=== PATIENT | male | born 1975 | race Caucasian/White ===

== ENCOUNTER 2021-05-05 11:55 | Emergency (ER) | payer MEDICAID, SELFPAY ==
[2021-05-05 12:04] VITALS: BP 156/104; PULSE 98; RESP 18; TEMP 36.5; O2SAT 94; BMI 33.5
--- NOTE | 2021-05-05 12:33 | XRR_ITS ---
PROCEDURE INFORMATION: Exam: XR Right Knee Exam date and time: 05/05/2021 12:33 PM Age: 45 years old Clinical indication: Pain; Knee; Right; Prior surgery; Surgery date: 6+ months; Additional info: Right knee pain TECHNIQUE: Imaging protocol: XR Right knee. Views: 3 views. COMPARISON: No relevant prior studies available. FINDINGS: Bones/joints: Status post ORIF of proximal tibial fracture with degenerative change. Mild sclerosis involving the lateral femoral condyle. Soft tissues: Unremarkable soft tissues. XR/XR knee RT 3V* [id number] IMPRESSION: Status post ORIF of proximal tibial fracture with degenerative change.
--- NOTE | 2021-05-05 12:33 | USCV_ITS ---
Ravinder Gibbs Age: 45 Gender: M : 1975 Exam Date: 05/05/2021 12:47 Ordering Phys: Artur Layton Technologist: Exam Location: [facility] [place]_ Indication: RT LEG PAIN AND SWELLING PROCEDURES: Venous duplex imaging was performed in only the right lower extremity. The following venous structures were evaluated: common femoral vein, profunda vein, proximal portion of the greater saphenous vein, superficial femoral vein, and the popliteal vein. In addition, the posterior tibial and peroneal trunk were evaluated. On the right side, the common femoral, superficial femoral, profunda femoral, popliteal, posterior tibial, greater saphenous veins and the peroneal trunk were identified and interrogated in the standard fashion. These veins were found to be easily compressible with spontaneous blood flow. No evidence of insufficiency or thrombus noted. FINDINGS: Normal 2-D Doppler and augmentation and compressibility throughout the lower extremity venous structures. Additional imaging through the proximal calf veins also reveals no thrombus. Limited evaluation of the greater saphenous vein is patent with no thrombus.. CONCLUSIONS No evidence of DVT in the above-mentioned identifiable veins. Dr Cindy Monge MD [facility] (Electronically Signed) Final Date: 05 May 2021 18:11 S
--- NOTE | 2021-05-05 12:35 | ED_ITS ---
HPI - Extremity Problem General: Chief complaint: Extremity Injury, Lower Stated complaint: Right knee pain Time Seen by Provider: 05/05/21 12:15 History of Present Illness: Patient is a 45-year-old male comes to the ED with right leg pain. Patient has past surgical history of a tibial plateau fracture where hardware was put in place. Over the past couple months patient has had increased right leg pain that occurs in his right knee sometimes in his calf. Majority of his pain is been in his right knee. He has been traveling a lot over the past couple weeks and doing a lot of sitting in the car and a lot of walking as well. Denies any fall or trauma to cause right leg pain. He rates his pain currently a 6 out of 10 but says he gets worse when he is up bearing weight on right leg. Denies any chest pain, shortness of breath or hemoptysis. Associated symptoms: Deny chest pain, fever(s) or rash Review of Systems Const: Denies: fever(s), chills or fatigue Eyes: Denies: change in vision or eye discomfort ENMT: Denies: throat pain, odynophagia, nasal discharge or nasal congestion Card: Denies: chest pain, palpitations, edema, swelling of feet/ankles, dyspnea on exertion or orthopnea Resp: Denies: dyspnea, productive cough or non-productive cough GI: Denies: abdominal pain, nausea, vomiting, diarrhea, constipation or hematochezia : Denies: flank pain, difficulty urinating, dysuria or hematuria Musc: Reports: extremity pain (Right knee and right calf); Denies: neck pain, back pain or extremity swelling Skin/Breast: Denies: rash or new lesions Neuro: Denies: headache(s), numbness in extremities or weakness in extremities [facility] ED PFSH: Medical History Fracture of tibial plateau No pertinent family history Physical Exam Const: COMMON NORMALS: no acute distress, patient oriented x3, healthy appearing and alert GENERAL APPEARANCE: cooperative and comfortable HENMT: COMMON NORMALS: normocephalic HEAD & SCALP: normocephalic MOUTH: Normal oral and palatal mucosa present THROAT: posterior oropharynx normal and uvula midline Neck/C-Spine: COMMON NORMALS: supple GENERAL: Yes normal visual inspection Resp: COMMON NORMALS: normal respiratory effort, No retractions, No use of accessory muscles and clear to auscultation bilaterally AUSCULTATION: clear to auscultation bilaterally Cardio: COMMON NORMALS: regular rate, regular rhythm, S1 normal heart sound present, S2 normal heart sound present, No gallops present (Cardio), No clicks present (Cardio), No murmurs present (Cardio) and Peripheral pulses 2+ throughout RATE: regular rate RHYTHM: regular rhythm HEART SOUNDS: S1 normal heart sound present and S2 normal heart sound present PERIPHERAL PULSES: Peripheral pulses 2+ throughout GI: COMMON NORMALS: Normal to inspection, nondistended, normoactive bowel sounds present, Soft to palpation, non-tender and no masses PALPATION: Yes Soft to palpation : COMMON NORMALS: Yes no CVA tenderness BLADDER/KIDNEY EXAM: Yes no CVA tenderness Back/Pelvis: COMMON NORMALS: no CVA tenderness Extremity: GENERAL: Yes normal exam except as noted RIGHT LOWER EXTREMITY: Yes knee joint Right knee: Yes inspection (Mild swelling.), Yes palpation (Tenderness over patella), Yes ROM (Full range of motion with pain) and Yes neurovascular exam (Intact) Neuro: COMMON NORMALS: patient oriented x3 and moves all extremities SENSORIUM/ORIENTATION: Yes alert Skin: GENERAL SKIN EXAM: dry skin Course Vital Signs: Vital signs: Vital Signs Temperature 97.7 F 05/05/21 12:04 Pulse Rate 91 05/05/21 14:24 Respiratory Rate 15 05/05/21 14:24 Blood Pressure 108/73 05/05/21 14:24 Pulse Oximetry 95 05/05/21 14:24 MDM - Extremity (Nontraumatic) Medical Decision Making Patient is a 45-year-old male comes to the ED with right leg pain. Most of pain is in right knee but he is also had some right calf pain. Denies any acute injury or trauma. X-ray of right knee x-ray shows status post ORIF of proximal tibial fracture with degenerative changes. Ultrasound venous duplex of right lower extremity shows no DVTs or blood clots seen. Patient diagnosed with pain in right knee and discharged home. Rest ice and elevate right leg. He was told to follow-up with PCP next 7 to 10 days reevaluation. Return to ED precautions given. Patient stood agree with plan. Lab Data Radiology Impressions Knee X-Ray 05/05/21 12:33 IMPRESSION: Status post ORIF of proximal tibial fracture with degenerative change. Imaging Data US Vascular: Radiologist's impression: Ultrasound venous duplex of right lower extremity?prelim report- no DVT or blood clots seen. Discharge Plan Discharge Patient Disposition: Home Clinical Impression: Pain in right knee Qualifiers: Chronicity: unspecified Qualified Code(s): M25.561 - Pain in right knee Condition: Stable Prescriptions: No Action venlafaxine 75 mg Tablet 75 mg PO BID 0RF meloxicam 15 mg Tablet 15 mg PO DAILY 0RF hydroxyzine pamoate 50 mg Capsule 50 mg PO BEDTIME PRN (Reason: Sleep) 0RF acetaminophen 500 mg Tablet 500 mg PO Q6H PRN (Reason: Pain) 0RF Vitamin D3 25 mcg (1,000 unit) Capsule 25 mcg PO BID 0RF Discharge Orders: Discharge ED (Routine); Ordered 05/05/21 Ordered By: Artur Layton Discharge Diet: Regular Discharge Activity: Increase activity as tolerated Patient Instructions: Knee Pain (ED) Activity Restrictions/Additional Instructions: Follow-up with medical provider as directed In 7 to 10 days reevaluation. Rest, ice and elevate right knee to help with symptoms. Take [id number] Tylenol for pain. Return to the ER or your medical provider if condition worsens. Please read and understand discharge instructions. Thank you for choosing [facility] for your healthcare needs today. Please realize this is an emergency room and that we are providing you with a medical screening exam and this may not be complete and all inclusive of all the testing and or work up that you may need to determine your ailment or severity of your illness. It is very important that you follow up as instructed or that you return to the Emergency Department should you have concerns or if your condition changes or worsens in any way. Coding Level of Care Code ED Grade Checker for Elen Vasquez Exam Comprehensive
[2021-05-05] MEDS: HYDROcodone-acetaminophen 7.5-325 mg Tablet 1 TAB PO (12:43)
[2021-05-05 13:16] VITALS: BP 157/91; PULSE 90; RESP 15; O2SAT 94
[2021-05-05 14:24] VITALS: BP 108/73; PULSE 91; RESP 15; O2SAT 95
== END 2021-05-05 14:11 | disposition home or self-care (01) ==
PROVIDERS: Emergency Provider Physician Assistant
DX: M25.561 Pain in right knee (principal)
CPT/HCPCS: 73562; 93971; 99283

== ENCOUNTER 2021-11-07 21:40 | Inpatient (IN) | payer OTHER, MEDICAID, SELFPAY ==
[2021-11-07 21:45] VITALS: BP 179/111; PULSE 87; RESP 18; TEMP 36.7; O2SAT 94; BMI 34.8
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
[2021-11-07] MEDS: LORazepam 1 mg Tablet 2 MG PO (22:12)
[2021-11-07 22:15] LABS: Basophils % 0.4 %; Eosinophils % 0.4 %; Hematocrit 49.5 % (42.0-52.0); Hemoglobin 16.7 g/dL (11.7-16.6); Lymphocytes % 9.2 %; Mean Corpuscular HGB Conc 33.7 g/dL (30.0-36.0); Mean Corpuscular Hemoglobin 29.9 pg (28.0-34.0); Mean Corpuscular Volume 88.7 fl (80-94); Mean Platelet Volume 9.8 fL (7.4-10.4); Monocytes # 0.5 10^3/uL (0.2-0.9); Neutrophils # 9.07 10^3/uL (1.8-7.7); Neutrophils % 84.7 %; Nucleated Red Blood Cells % 0 %; Platelet Count 268 10^3/cmm (130-400); Red Blood Count 5.58 10^6/uL (4.1-5.3); Red Cell Distribution Width 12.3 % (12.1-15.1); White Blood Count 10.7 10^3/uL (4.0-10.0)
[2021-11-07 22:32] LABS: Alanine Aminotransferase 37 U/L (0-41); Albumin Level 4.6 g/dL (3.5-5.2); Alkaline Phosphatase 95 U/L (40-130); Anion Gap 14.2 (5-19); Aspartate Amino Transferase 28 U/L (0-40); Blood Urea Nitrogen 12 mg/dL (6-20); Calcium 9.6 mg/dL (8.5-10.5); Carbon Dioxide 22 mmol/L (22-29); Chloride 103 mmol/L (98-107); Globulin 2.5 g/dL (1.3-4.6); Glomerular Filtration Rate 145.7 mL/min (90-130); Glucose 92 mg/dL (65-115); Osmolality Calculated 279 mOsm/kg (285-295); Potassium 4.2 mmol/L (3.5-5.1); Sodium 135 mmol/L (136-145); Total Bilirubin 0.3 mg/dL (0.15-1.2); Total Protein 7.1 g/dL (6.6-8.7)
[2021-11-07 22:44] LABS: Acetaminophen < 5.0 ug/mL (10-30); Alcohol Level < 10 mg/dL (0-10); Salicylate < 0.3 mg/dL (3-10)
[2021-11-07 23:13] VITALS: BP 159/87; PULSE 81; RESP 15; TEMP 36.3; O2SAT 95
[2021-11-07 23:24] LABS: Amphetamines Screen Urine Negative (Negative); Barbiturates Screen Urine Negative (Negative); Benzodiazepines Screen Urine Negative (Negative); Cocaine Screen Urine Negative (Negative); Opiate Screen Urine Negative (Negative); PCP Screen Urine Negative (Negative); THC Screen Urine Positive (Negative)
--- NOTE | 2021-11-07 23:55 | PC.NURSE ---
gave report to Andreia BULLARD
[2021-11-08 00:59] VITALS: BP 132/87; PULSE 79; RESP 17; TEMP 36.4; O2SAT 97
[2021-11-08 06:00] VITALS: BP 128/89; PULSE 85; RESP 17; TEMP 36.5; O2SAT 95
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
[2021-11-08] MEDS: citalopram 20 mg Tablet 40 MG PO (08:43)
[2021-11-08] MEDS: meloxicam 7.5 mg tablet 15 MG PO (08:44)
[2021-11-08] MEDS: hyDROXYzine 25 mg Capsule 50 MG PO ×2 (08:45→19:16)
[2021-11-08] MEDS: acetaminophen 325 mg Tablet 650 MG PO ×2 (08:46→16:01)
[2021-11-08] MEDS: cholecalciferol (vitamin D3) 1,000 unit Tablet 1000 UNIT PO ×2 (08:46→17:25)
--- NOTE | 2021-11-08 10:47 | PC.NURSE ---
PT IN ROOM REQUEST PAIN MEDICATION FOR RIGHT KNEE PAIN. TYLENOL WAS GIVEN ORDERED. PT DENIES SI/HI AND AVH AT THIS TIME. PT DOES REPORT INCREASED ANXIETY. VISTARIL WAS GIVEN ORDERED. PT ALSO REQUEST TO BE MOVED DUE PT PACING OUTSIDE DOOR AND IT IS INCREASING HIS ANXIETY. PT WAS MOVED TO 131/1 PER HIS REQUEST. ALL QUESTIONS ANSWERED AND SUPPORT WAS VOICED.
[2021-11-08 14:00] VITALS: BP 137/89; PULSE 69; RESP 16; TEMP 36.6; O2SAT 94
[2021-11-08] MEDS: ARIPiprazole 2 mg Tablet PO (15:17)
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
[2021-11-08 21:58] VITALS: BP 112/77; PULSE 94; RESP 17; TEMP 36.4; O2SAT 94
[2021-11-09 06:00] VITALS: BP 134/86; PULSE 70; RESP 17; TEMP 36.4; O2SAT 95
[2021-11-09] MEDS: acetaminophen 325 mg Tablet 650 MG PO ×2 (06:44→14:17)
[2021-11-09] MEDS: hyDROXYzine 25 mg Capsule 50 MG PO ×3 (07:22→20:27)
[2021-11-09] MEDS: citalopram 20 mg Tablet 40 MG PO (09:19)
[2021-11-09] MEDS: meloxicam 7.5 mg tablet 15 MG PO (09:19)
[2021-11-09] MEDS: cholecalciferol (vitamin D3) 1,000 unit Tablet 1000 UNIT PO ×2 (09:19→17:39)
[2021-11-09] MEDS: ARIPiprazole 2 mg Tablet PO (09:20)
[2021-11-09] MEDS: magnesium hydroxide 30 mL UDC PO (09:58)
[2021-11-09 14:00] VITALS: BP 135/94; PULSE 82; RESP 16; TEMP 36.8; O2SAT 92
--- NOTE | 2021-11-09 16:53 | P.NPUPN_ITS ---
Subjective NPU Subjective: Ravinder is a 46-year-old white male with a history of PTSD and major depressive disorder admitted with homicidal ideation increased irritability agitation and depressed mood. Continues to endorse PTSD symptoms including difficulties with sleep nightmares and reports that he had become angry with a staff and had punched a window today. He had reported that he had become easily agitated and irritated and reports that he has problems with managing his anger at home as well. He reports having not engaged in any evidence-based treatments for PTSD in the past but is agreeable to follow-up there along with medication management. He had reported some low energy and motivation but reported that he did not notice any side effects from his initial dose of Abilify yesterday. Mental Status Exam MSE Comments: Patient is a casually dressed bearded white male who appeared his stated age. He was pleasant and cooperative on interview. . His speech was somewhat loud in volume but normal rate and rhythm. His mood was described as depressed. His affect remained restricted in range and mood congruent. His thought process was linear logical and goal-directed. He did not endorse any a ctive suicidal ideation or homicidal ideation. There was no clear evidence of delusional thinking. He did not appear to be responding to internal stimuli. He was alert and oriented to person place and time. His recent and remote memory appeared grossly intact. His attention and concentration appeared fair his insight was fair his judgment was guarded. His impulse control appeared poor. Vitals/I&O/Wt Last Vital Signs Temp 98.3 F 11/09/21 14:00 Pulse 82 11/09/21 14:00 Resp 16 11/09/21 14:00 BP 135/94 11/09/21 14:00 Pulse Ox 92 11/09/21 14:00 O2 Del Method 11/09/21 06:00 Weight last 48 hrs Weight 113.398 kg Data NPU : 11/07/21 22:00 11/07/21 22:00 A&P Assessment and plan (1) Acute post-traumatic stress disorder: Status: Acute (2) Major depressive disorder: Status: Acute Qualifiers: Major depression recurrence: recurrent Active/Remission status: currently active Major depression episode severity: severe Plan This is a 46-year-old white male with major depressive disorder and posttraumatic stress disorder reporting recent exacerbation of PTSD symptoms along with depression. 1. Continue current medications and increased abilify to 5mg in am a djunctively to target irritability and agitation. 2. Encourage individual, group and milieu therapy 3. Continue q-15 minute check for safety 4. Referral for PTSD therapy-CBt, EMDR, cognitive processing therapy. Involuntary Hold Information 96 Hour Hold: 96 Hour Involuntary Admission: No Attestations NPU Medical Necessity Statement*: Inpatient hospitalization is medically necessary and the clinically appropriate intervention at this time. We will monitor medications and make changes as indicated. Patient will be in the hospital with likely length of stay is three to five days. 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
[2021-11-09 20:19] VITALS: BP 141/87; PULSE 96; RESP 19; O2SAT 96
[2021-11-10] MEDS: hyDROXYzine 25 mg Capsule 50 MG PO ×2 (03:13→17:47)
[2021-11-10 06:00] VITALS: RESP 16
[2021-11-10] MEDS: acetaminophen 325 mg Tablet 650 MG PO ×3 (07:30→19:51)
[2021-11-10] MEDS: meloxicam 7.5 mg tablet 15 MG PO (08:50)
[2021-11-10] MEDS: ARIPiprazole 2 mg Tablet 5 MG PO (08:51)
[2021-11-10] MEDS: cholecalciferol (vitamin D3) 1,000 unit Tablet 1000 UNIT PO ×2 (08:53→17:39)
[2021-11-10] MEDS: citalopram 20 mg Tablet 40 MG PO (08:53)
[2021-11-10 13:47] VITALS: BP 145/82; PULSE 90; RESP 17; TEMP 36.4; O2SAT 96
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
[2021-11-10] MEDS: ondansetron 4 MG Tablet PO (18:48)
[2021-11-10 20:03] VITALS: BP 135/91; PULSE 91; RESP 18; TEMP 36.7; O2SAT 96
[2021-11-11] MEDS: hyDROXYzine 25 mg Capsule 50 MG PO ×3 (00:15→22:10)
[2021-11-11] MEDS: acetaminophen 325 mg Tablet 650 MG PO ×2 (05:56→12:40)
[2021-11-11 06:00] VITALS: BP 130/88; PULSE 63; RESP 18; O2SAT 97
[2021-11-11] MEDS: ibuprofen 600 mg Tablet PO (07:55)
[2021-11-11] MEDS: cholecalciferol (vitamin D3) 1,000 unit Tablet 1000 UNIT PO ×2 (09:24→17:12)
[2021-11-11] MEDS: meloxicam 7.5 mg tablet 15 MG PO (09:24)
[2021-11-11] MEDS: citalopram 20 mg Tablet 40 MG PO (09:24)
[2021-11-11] MEDS: ARIPiprazole 10 mg Tablet PO (09:24)
--- NOTE | 2021-11-11 09:57 | PC.NURSE ---
PT CAME TO NURSES STATION REQUESTING MEDICATION FOR ANXIETY. PT WAS GIVEN VISTERIL.
--- NOTE | 2021-11-11 10:04 | PC.NURSE ---
Patient had mentioned that he normally takes Trazodone at [facility] but forgot to tell the physician. Let patient know that he could have that here and if needed, to ask the evening nurse. patient verbalized understanding.
[2021-11-11] MEDS: ondansetron 4 MG Tablet PO (10:51)
[2021-11-11 13:38] VITALS: BP 131/81; PULSE 110; RESP 18; TEMP 36.6; O2SAT 93
--- NOTE | 2021-11-11 17:12 | PC.PT ---
Pt had orders for a walker to use while here at the hospital. Pt was seen in the conference room and when introduced he immediately stated he did not need it anymore. Pt was walking around the community room with only slight limp but he states it was bad this morning. The nurses were spoken with and they agreed he did not seem to need a walker. Pt did admit he pulled a handrail out of the wall when he was walking and lost his balance this morning. Pt was not evaluated and not given a FWW.
--- NOTE | 2021-11-11 18:59 | W.PM.NPUPNS ---
Subjective NPU Subjective: Ravinder is a 46-year-old white male with a history of PTSD and major depressive disorder admitted with homicidal ideation increased irritability, agitation and depressed mood. Patient reports improved mood. He reports that he has been speaking with his while he was in hospital and had expressed better control of his anger. He had endorsed improved sleep. He denied any recent nightmares. He reported flashbacks regarding his trauma had diminished. He was compliant on milieu and reported improved energy and motivation. Mental Status Exam MSE Comments: Patient is a casually dressed bearded white male who appeared his stated age. He was pleasant and cooperative on interview. His speech was loud in volume with normal rate and rhythm. His mood was described as better. His affect appeared brighter and mood congruent. His thought process was linear logical and goal-directed. He did not endorse any active suicidal ideation or homicidal ideation. There was no clear evidence of delusional thinking. He did not appear to be responding to internal stimuli. He was alert and oriented to person place and time. His recent and remote memory appeared grossly intact. His attention and concentration appeared fair his insight was fair his judgment was guarded. His impulse control appeared poor. He remains hypervigilant. Vitals/I&O/Wt Last Vital Signs Temp 97.8 F 11/11/21 13:38 Pulse 110 H 11/11/21 13:38 Resp 18 11/11/21 13:38 BP 131/81 11/11/21 13:38 Pulse Ox 93 11/11/21 13:38 O2 Del Method 11/11/21 13:38 Weight last 48 hrs Weight 130 kg Data NPU : 11/07/21 22:00 11/07/21 22:00 A&P Assessment and plan (1) Acute post-traumatic stress disorder: Status: Acute (2) Major depressive disorder: Status: Acute Qualifiers: Major depression recurrence: recurrent Active/Remission status: currently active Major depression episode severity: severe Plan This is a 46-year-old white male with major depressive disorder and posttraumatic stress disorder reporting recent exacerbation of PTSD symptoms along with depression. 1. Continue celexa at 40mg in am and abilify at 10mg in am adjunctively to target irritability and agitation. 2. Encourage individual, group and milieu therapy 3. Continue q-15 minute check for safety 4. Referral for PTSD therapy-CBt, EMDR, cognitive processing therapy. Involuntary Hold Information 96 Hour Hold: 96 Hour Involuntary Admission: No Attestations NPU Medical Necessity Statement*: Inpatient hospitalization is medically necessary and the clinically appropriate intervention at this time. We will monitor medications and make changes as indicated. Patient will be in the hospital with likely discharge tommorow. 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
[2021-11-11 20:13] VITALS: BP 136/87; PULSE 81; RESP 18; TEMP 36.6; O2SAT 95
[2021-11-11] MEDS: trazodone 50 mg Tablet PO (22:11)
[2021-11-11] MEDS: OLANZapine 5 mg ODT PO (23:58)
--- NOTE | 2021-11-12 02:02 | PC.NURSE ---
Patient received a Vistaril and Trazodone this evening.Later patient received a Zyprexa Zydis,which helped him to relax and fall asleep.
[2021-11-12 06:00] VITALS: BP 130/89; PULSE 70; RESP 20; TEMP 36.5; O2SAT 97
[2021-11-12] MEDS: acetaminophen 325 mg Tablet 650 MG PO (06:55)
--- NOTE | 2021-11-12 07:03 | PC.NURSE ---
Patient c/o pain in head and neck.Medicated with Tylenol 650 mg po.
[2021-11-12] MEDS: ARIPiprazole 10 mg Tablet PO (08:05)
[2021-11-12] MEDS: citalopram 20 mg Tablet 40 MG PO (08:05)
[2021-11-12] MEDS: meloxicam 7.5 mg tablet 15 MG PO (08:05)
[2021-11-12] MEDS: cholecalciferol (vitamin D3) 1,000 unit Tablet 1000 UNIT PO (08:05)
[2021-11-12 09:10] VITALS: BP 130/89; PULSE 70; RESP 20; TEMP 36.5; O2SAT 97
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
== END 2021-11-12 10:05 | disposition home or self-care (01) | DRG 885 ==
LOC: ER 22:57 → NP 23:54
PROVIDERS: Admitting Provider Psychiatry & Neurology Psychiatry; Emergency Provider Emergency Medicine; Visit Provider Psychiatry & Neurology Psychiatry
DX: F33.2 Major depressive disorder, recurrent severe without psychotic features (principal); R45.850 Homicidal ideations; F41.9 Anxiety disorder, unspecified; F43.11 Post-traumatic stress disorder, acute; F40.00 Agoraphobia, unspecified; Z81.8 Family history of other mental and behavioral disorders; E55.9 Vitamin D deficiency, unspecified; G89.29 Other chronic pain; M19.042 Primary osteoarthritis, left hand; M19.041 Primary osteoarthritis, right hand; M17.0 Bilateral primary osteoarthritis of knee
CPT/HCPCS: 80053; 80306; 80307; 85025; 97150; 97165; 99285; Q0162

== ENCOUNTER 2022-08-12 11:06 | Emergency (ER) | payer OTHER, SELFPAY ==
[2022-08-12 11:23] VITALS: BP 148/94; PULSE 72; RESP 16; TEMP 36.5; O2SAT 96
[2022-08-12 13:35] VITALS: BP 146/88; PULSE 72; RESP 18; O2SAT 93
--- NOTE | 2022-08-12 13:51 | ED_ITS ---
HPI - Extremity Problem General: Chief complaint: Extremity Problem,Nontraumatic Stated complaint: right leg pain Time Seen by Provider: 08/12/22 13:34 Source: patient Mode of arrival: wheelchair Limitations: no limitations History of Present Illness: Patient is a 46-year-old male presents to ED today with a complaint of right knee pain. Patient states it is painful to try to fully extend the knee. He seems to be pain-free with the knee in flexion. No injury or trauma. He has not noticed any redness or warmth to the knee joint. He states he will intermittently have swelling to the joint. He reports a previous tibial plateau repair years ago. MD Complaint: joint pain Onset (ago): day(s) Pain Consistency: constant Location: right and lower extremity Radiation: none Relieving factors: immobilization Exacerbating factors: other (attempted flexion) Associated symptoms: Reports no associated symptoms; Deny chest pain or fever(s) Review of Systems Const: Denies: fever(s), chills, body aches, fatigue or malaise Card: Denies: chest pain Resp: Denies: dyspnea Musc: Reports: joint pain (R knee), joint swelling and limited range of motion; Denies: neck pain, back pain, extremity pain, extremity swelling, joint redness, joint warmth, muscle cramps, muscle weakness or decrease in muscle mass Neuro: Denies: numbness in extremities, weakness in extremities or sensory c hanges [facility] ED PFSH: Medical History Fracture of tibial plateau No pertinent family history Social History Alcohol intake: never Physical Exam Const: COMMON NORMALS: no acute distress, average body habitus, patient sujatha ented x3, no limitations, alert and well nourished Extremity: COMMON NORMALS: normal to inspection, capillary refill normal, no clubbing, cyanosis or edema, no calf tenderness and no pedal edema GENERAL: Yes normal exam except as noted RIGHT LOWER EXTREMITY: Yes knee joint (TTP throughout anterior knee; mild swelling noted) Right knee: Yes ROM (pain with attempted flexion) and Yes neurovascular exam (normal) and Yes lower leg (distal to knee is normal; no calf pain/swelling) Right lower leg: Yes neurovascular exam (normal) Neuro: COMMON NORMALS: patient oriented x3, moves all extremities, no focal motor deficits and no sensory deficits noted SENSORIUM/ORIENTATION: Yes alert Course Vital Signs: Vital signs: Vital Signs Temperature 97.7 F 08/12/22 11:23 Pulse Rate 72 08/12/22 13:35 Respiratory Rate 18 08/12/22 13:35 Blood Pressure 146/88 08/12/22 13:35 Pulse Oximetry 93 08/12/22 13:35 Oxygen Delivery Me thod Room Air 08/12/22 13:35 MDM - Extremity (Nontraumatic) Medical Decision Making XR negative. He has some tenderness and swelling noted clinically but joint otherwise appears normal. Will place knee in an SARAH wrap and give him a set of crutches to be weightbearing as tolerated. RICE therapy discussed. Otherwise he can follow-up with primary care. Lab Data Radiology Impressions Knee X-Ray 08/12/22 13:51 IMPRESSION: 1. Expected postoperative findings. No apparent complications. 2. Tricompartmental osteoarthritis. Discharge Plan Discharge Patient Disposition: Home Clinical Impression: Pain in right knee Condition: Stable Prescriptions: New ibuprofen 800 mg tablet 800 mg PO Q8H PRN (Reason: pain) Qty: 20 0RF Medrol (James) 4 mg tablets,dose pack See Rx Instructions .ROUTE .COMPLEX Qty: 21 0RF Rx Instructions: orally per package directions No Action meloxicam 15 mg Tablet 15 mg PO DAILY hydroxyzine pamoate [Vistaril] 50 mg Capsule 50 mg PO BEDTIME PRN (Reason: Sleep) acetaminophen 500 mg Tablet 500 mg PO Q6H PRN (Reason: Pain) cholecalciferol (vitamin D3) [Vitamin D3] 25 mcg (1,000 unit) Capsule 25 mcg PO BID aripiprazole 10 mg Tablet 10 mg PO DAILY 30 Days Qty: 30 1RF citalopram tablet 40 mg PO DAILY 30 Days Qty: 30 1RF Discharge Orders: Discharge ED (Routine); Ordered 08/12/22 Ordered By: Marissa Dumont Referrals: Elise Roper MD [Primary Care Provider] - Patient Instructions: RICE Therapy Coding Level of Care Code ED Inspector Exhaust Emissions for kyler Vasquez
--- NOTE | 2022-08-12 13:51 | XRR_ITS ---
PROCEDURE INFORMATION: Exam: XR Right Knee Exam date and time: 08/12/2022 2:00 PM Age: 46 years old Clinical indication: Pain; Right; Prior surgery; Surgery date: 6+ months; Surgery type: RT knee; Additional info: Pain, previous tibial plateau repair TECHNIQUE: Imaging protocol: Radiologic exam of the right knee. Views: 3 views. COMPARISON: CR (LOW EXM, ) 05/05/2021 1:09 PM FINDINGS: Bones/joints: Intact plate and screws in the proximal tibia. No sign of loosening. No acute fracture. Moderate lateral femorotibial compartment joint space narrowing. Tricompartmental osteophytes. No visible joint effusion. Assessment for effusion is limited by obliquity on the lateral view. Soft tissues: Visible soft tissues are unremarkable. XR/XR knee RT 3V* [id number] IMPRESSION: 1. Expected postoperative findings. No apparent complications. 2. Tricompartmental osteoarthritis.
[2022-08-12 14:59] VITALS: PULSE 72; O2SAT 96
== END 2022-08-12 15:01 | disposition home or self-care (01) ==
PROVIDERS: Emergency Provider Physician Assistant; PCP Family Medicine
DX: M25.561 Pain in right knee (principal)
CPT/HCPCS: 73562; 99283; E0114

== ENCOUNTER 2023-08-14 11:56 | Inpatient (IN) | payer OTHER, MEDICAID, SELFPAY ==
[2023-08-14 11:59] VITALS: BP 141/92; PULSE 99; TEMP 36.7; O2SAT 93; BMI 28.5
--- NOTE | 2023-08-14 12:20 | ED.C_ITS ---
HPI - Psych 2 General: Chief Complaint: Psychiatric Symptoms Stated Complaint: ptsd Time Seen by Provider: 08/14/23 11:59 Source: patient and EMS Mode of arrival: EMS Limitations: no limitations History of Present Illness: 47-year-old male with a history of depre ssion along with PTSD patient states that he has not been taking his meds for 8 months he states been under a lot of stress lately he has been having suicidal thoughts he denies any specific plans but he states has been much more depressed since had passing thoughts and voluntarily wants to get help. He denies any worsening improving factors. Associated symptoms: Reports depression Review of Systems 2 Const: Denies: fever(s), chills, body aches or change in appetite ENMT: Denies: throat pain or dental pain Card: Denies: chest pain Resp: Denies: dyspnea GI: Denies: abdominal pain, nausea, vomiting or diarrhea Musc: Denies: neck pain or back pain Skin/Breast: Denies: rash Neuro: Denies: headache(s) Psych: Reports: depression PFS ED 2 PFSH: Medical History Fracture of tibial plateau No pertinent family history Social History Alcohol intake: never Physical Exam 2 Const: COMMON NORMALS: no acute distress, patient oriented x3 and healthy appearing HENMT: COMMON NORMALS: normocephalic and atraumatic HEAD & SCALP: n ormocephalic and atraumatic Eye: COMMON NORMALS: Equal, round and reactive pupils present and EOMs intact bilaterally PUPIL: Yes Equal, round and reactive pupils present Neck/C-Spine: COMMON NORMALS: full ROM and supple Chest: COMMONS NORMALS: normal inspection of the chest Resp: COMMON NORMALS: normal respiratory effort Cardio: COMMON NORMALS: regular rate, regular rhythm and No murmurs present (Cardio) RATE: regular rate RHYTHM: regular rhythm Extremity: COMMON NORMALS: normal to inspection and full ROM Neuro: COMMON NORMALS: patient oriented x3, moves all extremities and no focal motor deficits Psych: COMMON NORMALS: mental status grossly normal, Normal thought process present and cooperative THOUGHT PROCESS: Normal thought process present Skin: COMMON NORMALS: no rashes or lesions noted and no wounds GENERAL SKIN EXAM: no rashes or lesions noted Course 2 Vital Signs: Vital signs: Vital Signs Temperature 98.0 F 08/14/23 11:59 Pulse Rate 99 08/14/23 11:59 Blood Pressure 141/92 08/14/23 11:59 Pulse Oximetry 93 08/14/23 11:59 Oxygen Delivery Me thod Room Air 08/14/23 11:59 [facility] - Psych Medical Decision Making Patient presents with depression with suicidal ideations he is voluntarily be admitted to the psych morfin he is medically cleared and will admit at this time Medical Records I reviewed the patient's medical records. Lab Data I reviewed the patient's lab results. 08/14/23 12:22 08/14/23 12:22 Laboratory Results WBC 9.28 10^3/uL (3.29-11.43) 08/14/23 12:22 RBC 5.62 10^6/uL (3.85-5.65) 08/14/23 12:22 Hgb 16.80 g/dL (11.27-16.99) 08/14/23 12:22 Hct 50.1 % (37-53) 08/14/23 12:22 MCV 89.1 fl (82-101) 08/14/23 12:22 MCH 29.9 pg (27-33) 08/14/23 12:22 MCHC 33.5 g/dL (30-55) 08/14/23 12:22 RDW 12.4 % (12.1-15.1) 08/14/23 12:22 Plt Count 288 10^3/cmm (157-399) 08/14/23 12:22 MPV 9.4 fL (7.4-10.4) 08/14/23 12:22 Neut % (Auto) 79.5 % 08/14/23 12:22 Lymph % (Auto) 12.4 % 08/14/23 12:22 [place] % (Auto) 7.3 % 08/14/23 12:22 Eos % (Auto) 0.2 % 08/14/23 12:22 Baso % (Auto) 0.3 % 08/14/23 12:22 Neut # (Auto) 7.37 10^3/uL (1.8-7.7) 08/14/23 12:22 Lymph # (Auto) 1.2 10^3/uL (0.8-4.8) 08/14/23 12:22 [place] # (Auto) 0.7 10^3/uL (0.2-0.9) 08/14/23 12:22 Eos # (Auto) 0.0 10^3/uL (0.0-0.8) 08/14/23 12:22 Baso # (Auto) 0.0 10^3/uL (0.0-0.1) 08/14/23 12:22 Nucleated RBC % (auto) 0 % 08/14/23 12:22 Nucleated RBCs # 0.0 /100WBC 08/14/23 12:22 Sodium 137 mmol/L (136-145) 08/14/23 12:22 Potassium 3.5 mmol/L (3.5-5.1) 08/14/23 12:22 Chloride 104 mmol/L (98-107) 08/14/23 12:22 Carbon Dioxide 20 mmol/L (22-29) L 08/14/23 12:22 Anion Gap 16.5 (5-19) 08/14/23 12:22 BUN 7 mg/dL (6-20) 08/14/23 12:22 Creatinine 0.7 mg/dL (0.7-1.2) 08/14/23 12:22 GFR Calculation 121.4 mL/min (90-130) 08/14/23 12:22 Glucose 108 mg/dL (65-115) 08/14/23 12:22 Calculated Osmolality 283 mOsm/kg (285-295) L 08/14/23 12:22 Calcium 9.2 mg/dL (8.5-10.5) 08/14/23 12:22 Total Bilirubin 0.7 mg/dL (0.15-1.2) 08/14/23 12:22 AST 21 U/L (0-40) 08/14/23 12:22 ALT 31 U/L (0-41) 08/14/23 12:22 Alkaline Phosphatase 83 U/L (40-130) 08/14/23 12:22 Total Protein 7.5 g/dL (6.6-8.7) 08/14/23 12:22 Albumin 4.2 g/dL (3.5-5.2) 08/14/23 12:22 Globulin 3.3 g/dL (1.3-4.6) 08/14/23 12:22 Salicylates < 0.3 mg/dL (3-10) L 08/14/23 12:22 Acetaminophen < 5.0 ug/mL (10-30) L 08/14/23 12:22 Ethyl Alcohol < 10 mg/dL (0-10) 08/14/23 12:22 No radiology studies performed this visit Discharge Plan Discharge Patient Disposition: Admitted As Inpatient Clinical Impression: Suicidal ideation, Depression Condition: Stable Prescriptions: No Action meloxicam 15 mg Tablet 15 mg PO DAILY hydroxyzine pamoate [Vistaril] 50 mg Capsule 50 mg PO BEDTIME PRN (Reason: Sleep) acetaminophen 500 mg Tablet 500 mg PO Q6H PRN (Reason: Pain) cholecalciferol (vitamin D3) [Vitamin D3] 25 mcg (1,000 unit) Capsule 25 mcg PO BID aripiprazole 10 mg Tablet 10 mg PO DAILY 30 Days Qty: 30 1RF citalopram tablet 40 mg PO DAILY 30 Days Qty: 30 1RF ibuprofen 800 mg tablet 800 mg PO Q8H PRN (Reason: pain) Qty: 20 0RF Medrol (James) 4 mg tablets,dose pack See Rx Instructions .ROUTE .COMPLEX Qty: 21 0RF Rx Instructions: orally per package directions Referrals: Elise Roper MD [Primary Care Provider] - Coding Level of Care Code ED Lung Gun Operator for Elen Vasquez
[2023-08-14 12:37] LABS: Basophils % 0.3 %; Eosinophils % 0.2 %; Hematocrit 50.1 % (37-53); Lymphocytes # 1.2 10^3/uL (0.8-4.8); Lymphocytes % 12.4 %; Mean Corpuscular HGB Conc 33.5 g/dL (30-55); Mean Corpuscular Hemoglobin 29.9 pg (27-33); Mean Corpuscular Volume 89.1 fl (82-101); Mean Platelet Volume 9.4 fL (7.4-10.4); Monocytes # 0.7 10^3/uL (0.2-0.9); Monocytes % 7.3 %; Neutrophils # 7.37 10^3/uL (1.8-7.7); Neutrophils % 79.5 %; Nucleated Red Blood Cells % 0 %; Platelet Count 288 10^3/cmm (157-399); Red Blood Count 5.62 10^6/uL (3.85-5.65); Red Cell Distribution Width 12.4 % (12.1-15.1); White Blood Count 9.28 10^3/uL (3.29-11.43)
--- NOTE | 2023-08-14 12:50 | PC.PHAR ---
PT IS [facility] FOR MED LIST 08/14/23 12:50PM
[2023-08-14 12:53] LABS: Alanine Aminotransferase 31 U/L (0-41); Albumin Level 4.2 g/dL (3.5-5.2); Alkaline Phosphatase 83 U/L (40-130); Anion Gap 16.5 (5-19); Aspartate Amino Transferase 21 U/L (0-40); Blood Urea Nitrogen 7 mg/dL (6-20); Calcium 9.2 mg/dL (8.5-10.5); Carbon Dioxide 20 mmol/L (22-29); Chloride 104 mmol/L (98-107); Creatinine Clr Calc Pharmacy 153.6348; Globulin 3.3 g/dL (1.3-4.6); Glomerular Filtration Rate 121.4 mL/min (90-130); Glucose 108 mg/dL (65-115); Osmolality Calculated 283 mOsm/kg (285-295); Potassium 3.5 mmol/L (3.5-5.1); Sodium 137 mmol/L (136-145); Total Bilirubin 0.7 mg/dL (0.15-1.2); Total Protein 7.5 g/dL (6.6-8.7)
[2023-08-14 13:00] LABS: Acetaminophen < 5.0 ug/mL (10-30); Alcohol Level < 10 mg/dL (0-10); Salicylate < 0.3 mg/dL (3-10)
[2023-08-14 13:03] LABS: Amphetamines Screen Urine Negative (Negative); Barbiturates Screen Urine Negative (Negative); Benzodiazepines Screen Urine Negative (Negative); Cocaine Screen Urine Negative (Negative); Opiate Screen Urine Negative (Negative); PCP Screen Urine Negative (Negative); THC Screen Urine Positive (Negative)
[2023-08-14 13:12] VITALS: BP 141/92; PULSE 99; TEMP 36.7; O2SAT 93
--- NOTE | 2023-08-14 13:12 | PC.NURSE ---
report given to Reyna in NPU, no further questions at end of report.
[2023-08-14 14:00] VITALS: BP 144/100; PULSE 93; RESP 16; TEMP 36.4; O2SAT 94
[2023-08-14] MEDS: hyDROXYzine 25 mg Capsule 50 MG PO ×2 (14:37→20:36)
--- NOTE | 2023-08-14 16:54 | PC.NURSE ---
Patient came up to the window requesting the whereabouts of the doctor. After being informed that this nurse did not know, patient shook his head. This nurse asked if there was anything I could do to help. Patient said, this place is . When asked if patient needed something for distraction, patient stated he would like his phone, so he can play video games but that i can't have that now can I . patient's tone was condescending. Patient is upset with the appearance of the unit, stating that it is disasterous for mental health and recovery.
[2023-08-14 19:15] VITALS: BP 159/97; PULSE 91; RESP 16; TEMP 36.6; O2SAT 95
[2023-08-14] MEDS: trazodone 50 mg Tablet PO (20:36)
[2023-08-14] MEDS: nicotine 4 mg lozenge MUCOUS MEM (20:36)
[2023-08-15] MEDS: hyDROXYzine 25 mg Capsule 50 MG PO (03:46)
[2023-08-15] MEDS: OLANZapine 5 mg ODT PO (04:43)
--- NOTE | 2023-08-15 04:44 | PC.NURSE ---
Patient requested medication for agitation. He states that this place is in human, the pen is too small for his hands and nothing has changes since last time I was here See MAR
[2023-08-15 06:00] VITALS: BP 118/86; PULSE 80; RESP 16; TEMP 36.6; O2SAT 93
[2023-08-15] MEDS: nicotine 4 mg lozenge MUCOUS MEM ×2 (08:27→11:40)
[2023-08-15] MEDS: acetaminophen 325 mg Tablet 650 MG PO (12:33)
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
--- NOTE | 2023-08-15 13:36 | PC.NURSE ---
AT 1332 SECURITY AND RISK MANAGEMENT RN'S CAME TO NPU WITH TIMBER REPAIRER STATING THEY NEEDED TO GET INTO THE SAFE AND TAKE POSSESSION OF PTS PHONE. THIS RN WITH ALL OF THE ABOVE WENT, UNLOCKED SAFE AND THEN GAVE THE PTS PHONE TO THE TIMBER REPAIRER REQUESTED. INSURANCE LOSS ADJUSTER PHILLIP SIGNED OFF ON BELONGINGS SHEET STATING PHONE WAS REMOVED FROM PTS INVENTORY. RN TO CALL RD REIED PRIOR TO PT DISCHARGE.
[2023-08-15 13:41] VITALS: BP 131/80; PULSE 96; RESP 16; TEMP 36.6; O2SAT 95
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
[2023-08-15 15:02] VITALS: BP 131/80; PULSE 96; RESP 16; TEMP 36.6; O2SAT 95
--- NOTE | 2023-08-15 15:28 | PC.NURSE ---
PT REFUSED MEDICATIONS FROM PHARMACY. THIS NURSE CANCELED MEDICATIONS AT PHARMACY AND NOTIFIED PHYSICIAN. PT ALSO REFUSING MEDICAID RIDE. PT IS REQUESTING TO WALK, PT WAS OFFERED A BUS TICKET, A MEDICAID RIDE AND STILL IS REQUESTING TO WALK. DEVYN HOLLIS AND RD DIRECTOR OF SUPPORT SERVICES AIDED NURSING STAFF AND OFFERED ALL THE ACCOMMODATIONS AND STILL PT REFUSED RIDE ASSISTANCE. PT WAS EXPLAINED THE DISTANCE FROM THE HOSPITAL TO WHERE HE WISHES TO GO AND STATED I WALK EVERYWHERE I JUST WANT TO LEAVE. PHYSICIAN WAS NOTIFIED AND AGREED TO LET PT LEAVE. PT DISCHARGE PAPERWORK FILLED OUT AND PT BELONGINGS RETURNED. PT CURRENT NEEDS ARE MET AT THIS TIME.
== END 2023-08-15 15:35 | disposition home or self-care (01) | DRG 882 ==
LOC: ER 13:03 → NP 13:23
PROVIDERS: Admitting Provider Psychiatry & Neurology Psychiatry; Emergency Provider Emergency Medicine; PCP Family Medicine; Visit Provider Psychiatry & Neurology Psychiatry
DX: F43.11 Post-traumatic stress disorder, acute (principal); F33.2 Major depressive disorder, recurrent severe without psychotic features; Z62.810 Personal history of physical and sexual abuse in childhood; Z91.410 Personal history of adult physical and sexual abuse
CPT/HCPCS: 36415; 80053; 80306; 80307; 85025; 97150; 97165; 99285